=== PATIENT | female | born 1960 | race African-American/Black ===

== ENCOUNTER 2020-07-20 15:06 | Inpatient (IN) ==
[2020-07-20] MEDS ORDERED: ONDANSETRON 4 MG/2 ML VIAL IV STA (15:33)
[2020-07-20] MEDS ORDERED: SODIUM CHLORIDE 0.9% 1,000 ML IV STA (15:33)
[2020-07-20 16:30] LABS: Bacteria,Urine Many /HPF (Few); Bilirubin,Urine Negative (Negative); Blood, Urine Small mg/dL (Negative); Glucose,Urine (UA) 50 mg/dL (Negative); Ketones,Urine 20 mg/dL (Negative); Mucus,Urine Few /LPF (Occasional); Nitrite,Urine Positive (Negative); Protein,Urine Negative; RBC,Urine 2 /HPF (0-4); Squamous Epithelial Cell,Urine Moderate /HPF (0-10); Urine Appearance CLOUDY (Clear); Urine Color Yellow (Yellow); Urine Specific Gravity 1.019 (1.001-1.035); Urine Urobilinogen < 2.0 EU/DL (0.2-1.0); WBC,Urine 183 /HPF (0-6)
[2020-07-20] MEDS ORDERED: cefTRIAXone 1,000 MG in SODIUM CHLORIDE 0.9% 100 ML IV STA (16:32)
[2020-07-20 16:45] LABS: Basophils # 0.1 10*3/uL (0.0-0.2); Basophils % 0.6 % (0.0-0.8); Eosinophils % 0.4 % (0.00-10.9); Hematocrit 43.2 VOL% (35.7-47.0); Immature Granulocytes % 1.4 %; Immature Granulocytes Absolute 0.12 #; Lymphocytes # 0.5 10*3/uL (1.4-4.0); Lymphocytes % 5.9 % (21.3-54.2); Mean Corpuscular HGB Conc 32.4 GM/DL (32-36); Mean Corpuscular Volume 82.1 FL (87-102); Mean Platelet Volume 11.2 FL (9.6-12.0); Monocytes % 9.7 % (1.7-12.7); Platelet Count 361 T/CUMM (130-400); Red Blood Count 5.26 MC/CUMM (3.8-5.5); Red Cell Distribution Width 12.8 % (9.3-17.3); White Blood Count 8.5 T/CUMM (4-12)
[2020-07-20 17:00] LABS: Albumin 2.9 G/DL (3.4-5.0); Bilirubin,Total 0.7 MG/DL (0.2-1.0); Calcium 10.3 MG/DL (8.5-10.1); Osmolality,Calculated 278.2 MOS/KG (273-304); Potassium 4.7 MMOL/L (3.5-5.1); Total Protein 7.6 G/DL (5.0-7.5)
[2020-07-20] MEDS ORDERED: hydrALAZINE 20 MG/1 ML VIAL ONE (17:35)
[2020-07-20] MEDS ORDERED: hydrALAZINE 20 MG/1 ML VIAL IV STA (17:40)
[2020-07-20] MEDS ORDERED: PROMETHAZINE 25 MG TABLET PO PRN (17:50)
[2020-07-20] MEDS ORDERED: NICOTINE 21 MG/24 HR PATCH TRANSDERM PRN (17:50)
[2020-07-20] MEDS ORDERED: DEXTROSE 50% 25 GM/50 ML VIAL IV PRN (17:50)
[2020-07-20] MEDS ORDERED: guaiFENesin/DM ER 600-30 MG TABLET PO PRN (17:50)
[2020-07-20] MEDS ORDERED: ACETAMINOPHEN 325 MG TABLET PO PRN (17:50)
[2020-07-20] MEDS ORDERED: diphenhydrAMINE CAP 25 MG CAPSULE PO PRN (17:50)
[2020-07-20] MEDS ORDERED: MORPHINE 4 MG/1 ML VIAL IV PRN (17:50)
[2020-07-20] MEDS ORDERED: ALUMINUM/MAGNES/SIMETH MAX STR 30 ML UDCUP PO PRN (17:50)
[2020-07-20] MEDS ORDERED: BISACODYL 5 MG TABLET PO PRN (17:50)
[2020-07-20] MEDS ORDERED: GLUCAGON 1 MG VIAL IM PRN (17:50)
[2020-07-20] MEDS ORDERED: ONDANSETRON 4 MG/2 ML VIAL IV PRN (17:50)
[2020-07-20] MEDS: cefTRIAXone 1,000 MG in SYRINGE 1 EACH IV SCH (18:23)
[2020-07-20] MEDS: DEXT 5% NACL 0.9% KCL 40 MEQ 40 MEQ/1,000 ML BAG IV SCH (19:03)
[2020-07-20] MEDS: HEPARIN 5,000 UNIT/1 ML VIAL SUBCUT SCH (19:03)
[2020-07-21] MEDS: DEXT 5% NACL 0.9% KCL 40 MEQ 40 MEQ/1,000 ML BAG IV SCH (05:52)
[2020-07-21] MEDS: HEPARIN 5,000 UNIT/1 ML VIAL SUBCUT SCH (05:54)
[2020-07-21 06:14] LABS: Basophils % 0.5 % (0.0-0.8); Eosinophils # 0.1 10*3/uL (0.0-0.87); Eosinophils % 0.7 % (0.00-10.9); Hematocrit 39.2 VOL% (35.7-47.0); Hemoglobin 12.6 GM/DL (12.0-16.0); Immature Granulocytes Absolute 0.15 #; Lymphocytes # 0.8 10*3/uL (1.4-4.0); Lymphocytes % 10.7 % (21.3-54.2); Mean Corpuscular HGB Conc 32.1 GM/DL (32-36); Mean Corpuscular Volume 83.2 FL (87-102); Mean Platelet Volume 11.2 FL (9.6-12.0); Monocytes % 10.4 % (1.7-12.7); Neutrophils % 75.7 % (38.7-73.9); Platelet Count 332 T/CUMM (130-400); Red Blood Count 4.71 MC/CUMM (3.8-5.5); Red Cell Distribution Width 12.9 % (9.3-17.3); White Blood Count 7.5 T/CUMM (4-12)
[2020-07-21 06:54] LABS: Calcium 9.6 MG/DL (8.5-10.1); Osmolality,Calculated 279.8 MOS/KG (273-304); Potassium 4.4 MMOL/L (3.5-5.1)
[2020-07-21] MEDS: METOPROLOL TARTRATE 25 MG TABLET PO SCH ×2 (10:13→21:28)
[2020-07-21] MEDS: PANTOPRAZOLE 40 MG TABLET PO SCH (10:13)
[2020-07-21] MEDS: FEBUXOSTAT 80 MG TABLET PO SCH (10:13)
[2020-07-21] MEDS: ENOXAPARIN 40 MG/0.4 ML SYRINGE SUBCUT SCH (10:14)
[2020-07-21] MEDS: hydrALAZINE 20 MG/1 ML VIAL IV PRN (17:13)
[2020-07-21] MEDS: cefTRIAXone 1,000 MG in SYRINGE 1 EACH IV SCH (17:13)
[2020-07-21] MEDS: ZALEPLON 5 MG CAPSULE PO PRN (21:24)
[2020-07-22 06:13] LABS: Basophils # 0.1 10*3/uL (0.0-0.2); Basophils % 0.6 % (0.0-0.8); Eosinophils # 0.1 10*3/uL (0.0-0.87); Eosinophils % 0.8 % (0.00-10.9); Hematocrit 38.8 VOL% (35.7-47.0); Hemoglobin 12.8 GM/DL (12.0-16.0); Immature Granulocytes % 2.4 %; Lymphocytes # 0.8 10*3/uL (1.4-4.0); Lymphocytes % 9.8 % (21.3-54.2); Mean Corpuscular Volume 81.5 FL (87-102); Mean Platelet Volume 12.1 FL (9.6-12.0); Monocytes % 9.2 % (1.7-12.7); Neutrophils % 77.2 % (38.7-73.9); Platelet Count 332 T/CUMM (130-400); Red Blood Count 4.76 MC/CUMM (3.8-5.5); White Blood Count 8.4 T/CUMM (4-12)
[2020-07-22 06:40] LABS: Calcium 9.6 MG/DL (8.5-10.1); Eosinophils 2 % (0-10); Hypochromasia Slight; Lymphocytes 9 % (20-55); Platelet Estimate Adequate; Potassium 3.8 MMOL/L (3.5-5.1); Segmented Neutrophils 84 % (50-85); Total Cells Counted 100
[2020-07-22 06:41] LABS: Microcytosis Slight
[2020-07-22] MEDS: PANTOPRAZOLE 40 MG TABLET PO SCH (08:47)
[2020-07-22] MEDS: METOPROLOL TARTRATE 25 MG TABLET PO SCH ×2 (08:47→21:32)
[2020-07-22] MEDS: FEBUXOSTAT 80 MG TABLET PO SCH (08:47)
[2020-07-22] MEDS: ENOXAPARIN 40 MG/0.4 ML SYRINGE SUBCUT SCH (08:48)
[2020-07-22 10:57] LABS: PT Patient Result 11.1 SECS (9.8-11.9); Partial Thromboplastin Time 27.8 SECS (23.9-33.8)
[2020-07-22] MEDS: DEXT 5% NACL 0.9% KCL 40 MEQ 40 MEQ/1,000 ML BAG IV SCH ×2 (11:25→11:35)
[2020-07-22] MEDS: hydrALAZINE 20 MG/1 ML VIAL IV PRN (16:48)
[2020-07-22] MEDS: cefTRIAXone 1,000 MG in SYRINGE 1 EACH IV SCH (17:37)
[2020-07-22] MEDS: hydroCHLOROthiazide 25 MG TABLET PO SCH (21:32)
[2020-07-22] MEDS: amLODIPine 5 MG TABLET PO SCH (21:32)
[2020-07-22] MEDS: ZALEPLON 5 MG CAPSULE PO PRN (21:32)
[2020-07-23] MEDS: DEXT 5% NACL 0.9% KCL 40 MEQ 40 MEQ/1,000 ML BAG IV SCH ×3 (00:20→13:40)
[2020-07-23] MEDS: FEBUXOSTAT 80 MG TABLET PO SCH (09:01)
[2020-07-23] MEDS: PANTOPRAZOLE 40 MG TABLET PO SCH (09:01)
[2020-07-23] MEDS: ENOXAPARIN 40 MG/0.4 ML SYRINGE SUBCUT SCH (09:01)
[2020-07-23] MEDS: amLODIPine 5 MG TABLET PO SCH (09:02)
[2020-07-23] MEDS: METOPROLOL TARTRATE 25 MG TABLET PO SCH ×2 (09:02→20:17)
[2020-07-23] MEDS: hydroCHLOROthiazide 25 MG TABLET PO SCH (09:02)
[2020-07-23] MEDS: ERTAPENEM 1,000 MG in SODIUM CHLORIDE 0.9% 100 ML IV SCH (11:36)
[2020-07-24] MEDS: DEXT 5% NACL 0.9% KCL 40 MEQ 40 MEQ/1,000 ML BAG IV SCH ×2 (03:45→20:04)
[2020-07-24] MEDS: PANTOPRAZOLE 40 MG TABLET PO SCH (08:57)
[2020-07-24] MEDS: FEBUXOSTAT 80 MG TABLET PO SCH (08:57)
[2020-07-24] MEDS: ENOXAPARIN 40 MG/0.4 ML SYRINGE SUBCUT SCH (08:57)
[2020-07-24] MEDS: amLODIPine 5 MG TABLET PO SCH (08:57)
[2020-07-24] MEDS: ERTAPENEM 1,000 MG in SODIUM CHLORIDE 0.9% 100 ML IV SCH (08:58)
[2020-07-24] MEDS: METOPROLOL TARTRATE 25 MG TABLET PO SCH ×2 (08:58→20:04)
[2020-07-24] MEDS: hydroCHLOROthiazide 25 MG TABLET PO SCH (09:05)
[2020-07-25] MEDS: ERTAPENEM 1,000 MG in SODIUM CHLORIDE 0.9% 100 ML IV SCH (08:55)
[2020-07-25] MEDS: ENOXAPARIN 40 MG/0.4 ML SYRINGE SUBCUT SCH (08:56)
[2020-07-25] MEDS: amLODIPine 5 MG TABLET PO SCH (08:56)
[2020-07-25] MEDS: METOPROLOL TARTRATE 25 MG TABLET PO SCH (08:56)
[2020-07-25] MEDS: PANTOPRAZOLE 40 MG TABLET PO SCH (08:56)
[2020-07-25] MEDS: FEBUXOSTAT 80 MG TABLET PO SCH (08:56)
[2020-07-25] MEDS: hydroCHLOROthiazide 25 MG TABLET PO SCH (08:56)
[2020-07-25] MEDS: DEXT 5% NACL 0.9% KCL 40 MEQ 40 MEQ/1,000 ML BAG IV SCH (10:38)
[2020-07-25 16:14] VITALS: BP 158/80
== END 2020-07-25 17:50 | disposition home or self-care (01) | DRG 690 ==
LOC: N.ED 15:06 → N.EDINP 15:06 → N.3E 18:04
PROVIDERS: ADMIT Internal Medicine; ATTEND Internal Medicine